=== PATIENT | female | born 1975 | race Caucasian/White ===

== ENCOUNTER 2024-10-15 18:20 | Emergency (ER) | payer MEDICAID, OTHER ==
[~2024-10-15] VITALS: Ht 144.8 cm; Wt 69.9 kg
[2024-10-15] MEDS: hydrALAZINE HCL IV 20 MG VIAL IV ONE (18:32)
[2024-10-15 19:03] LABS: BASOPHILS # (AUTO) 0.1 K/uL (0.0-0.2); BASOPHILS % (AUTO) 0.8 % (0.0-2.0); EOSINOPHILS # (AUTO) 0.2 K/uL (0.0-0.7); EOSINOPHILS % (AUTO) 2.5 % (0.0-6.0); HEMATOCRIT 35 % (33-45); HEMOGLOBIN 12.1 g/dL (11.5-14.8); LYMPHOCYTES # (AUTO) 1.8 K/uL (0.8-4.8); LYMPHOCYTES % (AUTO) 23.4 % (20.0-44.0); MEAN CORPUSCULAR HEMOGLOBIN 26 PG (26.0-33.0); MEAN CORPUSCULAR HGB CONC 34 g/dl (31.0-36.0); MEAN CORPUSCULAR VOLUME 77 fL (82-100); MONOCYTES # (AUTO) 0.4 K/uL (0.1-1.30); MONOCYTES % (AUTO) 5.8 % (2.0-12.0); NEUTROPHILS # (AUTO) 5.1 K/uL (1.8-8.9); NEUTROPHILS % (AUTO) 67.5 % (43.0-81.0); PLATELET COUNT (AUTO) 248 K/uL (150-450); RED BLOOD CELL COUNT(AUTO) 4.61 MIL/uL (4.0-5.2); RED CELL DISTRIBUTION WIDTH 15.4 % (11.5-15.0); WHITE BLOOD COUNT (AUTO) 7.5 K/uL (4.3-11.0)
[2024-10-15 19:11] LABS: CALCIUM, SERUM 9.7 mg/dL (8.5-10.1); CARBON DIOXIDE 26 mmol/L (21-32); CHLORIDE 102 mmol/L (98-107); CREATININE 0.8 mg/dL (0.6-1.3); GLUCOSE 142 mg/dL (74-106); POTASSIUM 3.7 mmol/L (3.5-5.1); SODIUM SERUM 137 mmol/L (136-145); UREA NITROGEN, BLOOD 12 mg/dL (7-18)
[2024-10-15] MEDS ORDERED: ACETAMINOPHEN ES 500 MG TABLET ONE (19:24)
[2024-10-15 19:26] LABS: ALANINE AMINOTRANSFERASE 69 U/L (12-78); ALBUMIN 3.7 g/dL (3.4-5.0); ALKALINE PHOSPHATASE 153 U/L (46-116); ASPARTATE AMINOTRANSFERASE 34 U/L (15-37); BILIRUBIN,DIRECT 0.2 mg/dL (0.0-0.2); BILIRUBIN,TOTAL 0.6 mg/dL (0.2-1.0); NT-PRO BNP 376 pg/mL (0-125); TOTAL PROTEIN, SERUM 7.8 g/dL (6.4-8.2)
[2024-10-15] MEDS: ACETAMINOPHEN ES 500 MG TABLET PO ONE (19:34)
[2024-10-15] MEDS: IV NS 0.9% 500 ML BAG IV ONE ×2 (19:34→20:37)
[2024-10-15] MEDS ORDERED: AMOX-430 PO (19:51)
[2024-10-15] MEDS ORDERED: CLONIDINE HCL 0.1 MG TABLET ONE (20:00)
[2024-10-15] MEDS ORDERED: AMOX/CLAVULANATE 875 MG TABLET ONE (20:01)
[2024-10-15] MEDS: AMOX/CLAVULANATE 875 MG TABLET PO ONE (20:05)
[2024-10-15] MEDS: CLONIDINE HCL 0.1 MG TABLET PO ONE (20:05)
[2024-10-15 20:10] VITALS: TEMP 99.3
[2024-10-15] MEDS ORDERED: METOPROLOL SUCCINATE 25 MG TAB.SR.24H ONE (20:27)
[2024-10-15] MEDS: METOPROLOL SUCCINATE 50 MG TAB.SR.24H PO SCH (20:37)
[2024-10-15 21:22] VITALS: BP 168/83; O2SAT 99
== END 2024-10-15 21:23 | disposition home or self-care (01) ==
LOC: ER 18:33
DX: I10 Essential (primary) hypertension (principal); J18.9 Pneumonia, unspecified organism; E78.5 Hyperlipidemia, unspecified; Z79.899 Other long term (current) drug therapy
CPT/HCPCS: 99285; 96374; 71045; 96361; 93005; 85025; 80048; 80076; 36415; 84484 ×2; 83880; J0360; J7040 ×2